=== PATIENT | male | born 1970 | race Caucasian/White ===

== ENCOUNTER 2017-03-28 14:17 | Inpatient (IN) | payer OTHER ==
[2017-03-28 15:16] VITALS: BMI 26.6
--- NOTE | 2017-03-28 16:15 | HP ---
Admission ROS [facility] Chief Complaint: "I need to get better." Patient is here for Rehab for Percocet (Prescribed) and Xanax (Prescribed). Allergies/Adverse Reactions: Allergies Allergy/AdvReac Type Severity Reaction Status Date / Time pencillin Allergy Intermediate Hives Uncoded 03/28/17 15:36 History of Present Illness: Patient is a 46 YO male here for Rehab for Percocet (Prescribed, started 2010) and Xanax (Prescribe, started 2013). Patient just completed a Detox at [facility] (7 days) earlier today. This is patient's first Rehab admission at [facility]. Exam Limitations: No Limitations - Ebola screening Have you traveled outside of the country in the last 21 days: No Have you had contact with anyone from an Ebola affected area: No Have you been sick,other than usual withdrawal symptoms: No Do you have a fever: No - Review of Systems Constitutional: Chills, Diaphoresis, Loss of Appetite, Malaise, Night Sweats, Changes in sleep, Unintentional Wgt. Loss (Lost approx. 10 lbs. over last 2 months.) EENT: reports: Dental Problems (Discomfort on right side of face (had upper left molar pulled yesterday)), Other (Upper and Lower Dentures.) Respiratory: reports: No Symptoms reported Cardiac: reports: Palpitations (When feeling anxious.) GI: reports: Diarrhea : reports: No Symptoms Reported Musculoskeletal: reports: Back Pain, Joint Pain, Muscle Pain, Joint Stiffness Integumentary: reports: No Symptoms Reported Neuro: reports: Headache Endocrine: reports: No Symptoms Reported Hematology: reports: Blood Clots (Treated for DVT in Left Leg (Treated, Resolved @ 2002).) Psychiatric: reports: Judgement Intact, Mood/Affect Appropiate, Orientated x3, Anxious, Depressed (Took Valium in Past, None currently.) Other Systems: Reviewed and Negative Patient History - Patient Medical History Hx Anemia: No Hx Asthma: Yes (Uses Ventolin Inhaler PRN.) Hx Chronic Obstructive Pulmonary Disease (COPD): No Hx Cancer: No Hx Cardiac Disorders: No Hx Congestive Heart Failure: No Hx Hypertension: No (During Detox only.) Hx Hypercholesterolemia: No Hx Pacemaker: No HX Cerebrovascular Accident: No Hx Seizures: No Hx Dementia: No Hx Diabetes: No Hx Gastrointestinal Disorders: No Hx Liver Disease: No Hx Genitourinary Disorders: No Hx Sexually Transmitted Disorders: No Hx Renal Disease (ESRD): No Hx Thyroid Disease: No Hx Human Immunodeficiency Virus (HIV): No (Last Tested approx. 3 years ago: NEGATIVE.) Hx Hepatitis C: No (Never Tested.) Hx Depression: Yes (And anxiety; Meds. in past; None Current.) Hx Suicide Attempt: No (PATIENT DENIES CURRENT SI / HI.) Hx Bipolar Disorder: No Hx Schizophrenia: No Other Medical History: DVT, Left leg, Treated, Resolved @ 2002. - Patient Surgical History Past Surgical History: Yes Hx Neurologic Surgery: No Hx Cataract Extraction: No Hx Cardiac Surgery: No Hx Lung Surgery: No Hx Breast Surgery: No Hx Breast Biopsy: No Hx Abdominal Surgery: No Hx Appendectomy: No Hx Cholecystectomy: No Hx Genitourinary Surgery: No Hx Orthopedic Surgery: No Other Surgical History: Surgery in Left inguinal area @ 2002 to treat DVT. Anesthesia Reaction: No - PPD History Previous Implant?: Yes Documented Results: Negative w/o proof Implanted On Prior [facility] Admission?: No PPD to be Administered?: Yes - Reproductive History Patient is a Female of Child Bearing Age (11 -55 yrs old): No (PATIENT IS MALE.) - Smoking Cessation Smoking history: Current every day smoker Have you smoked in the past 12 months: Yes Aproximately how many cigarettes per day: 30 Cigars Per Day: 0 Hx Chewing Tobacco Use: No Initiated information on smoking cessation: Yes 'Breaking Loose' booklet given: 03/28/17 (GIVEN ON UNIT.) - Substance & Tx. History Hx Alcohol Use: No Hx Substance Use: No Substance Use Type: Opiates, Prescribed (Percocet, Xanax.), Tranquilizers Hx Substance Use Treatment: Yes (Detox at [facility] ([facility] just completed earlier today.) - Substances Abused Alprazolam (Xanax) Route: Oral Frequency: Daily Amount used: 6 - 7 MG Daily Age of first use: 42 Date of Last Use: 03/21/17 Percocet Route: Oral Frequency: Daily Age of first use: 41 Date of Last Use: 03/21/17 Family Disease History - Family Disease History Family Disease History: Diabetes: Father (Bladder Ca.), Heart Disease: Sister ( HTN; Hysterectomy.), CA: Father, Mother (Ovarian, .) Admission Physical Exam [facility] - Vital Signs Vital Signs: Vital Signs - 24 hr 03/28/17 15:15 Temperature 97.7 F Pulse Rate 100 H Respiratory 18 Rate Blood Pressure 115/78 - Physical General Appearance: Yes: No Apparent Distress, Nourished, Appropriately Dressed , Anxious, Other (Patient ambulating with assistance of a cane.) HEENTM: Yes: Hearing grossly Normal, Normocephalic, Normal Voice, XIOMARA, Pharynx Normal Respiratory: Yes: Chest Non-Tender, Lungs Clear, No Respiratory Distress, No Accessory Muscle Use Neck: Yes: No masses,lesions,Nodules, Supple, Trachea in good position Breast: Yes: Breast Exam Deferred Cardiology: Yes: Regular Rhythm, Regular Rate, S1, S2 Abdominal: Yes: Normal Bowel Sounds, Non Tender, Flat, Soft Genitourinary: Yes: Within Normal Limits Back: Yes: Decreased Range of Motion Musculoskeletal: Yes: Gait Steady, Back pain, Joint Stiffness Extremities: Yes: Normal Capillary Refill Neurological: Yes: Fully Oriented, Alert, Normal Mood/Affect, Normal Response Integumentary: Yes: Normal Color, Dry, Warm Lymphatic: Yes: Within Normal Limits - Diagnostic (1) Opioid dependence, uncomplicated Current Visit: Yes Status: Chronic (2) Sedative, hypnotic or anxiolytic dependence, uncomplicated Current Visit: Yes Status: Chronic (3) Nicotine dependence Current Visit: Yes Status: Chronic Qualifiers: Nicotine product type: cigarettes Substance use status: uncomplicated Qualified Code(s): F17.210 - Nicotine dependence, cigarettes, uncomplicated (4) Use of cane as ambulatory aid Current Visit: Yes Status: Chronic (5) History of DVT (deep vein thrombosis) Current Visit: Yes Status: Resolved (6) Depression with anxiety Current Visit: Yes Status: Chronic (7) Insomnia Current Visit: Yes Status: Chronic Qualifiers: Insomnia type: unspecified Qualified Code(s): G47.00 - Insomnia, unspecified (8) Asthma Current Visit: Yes Status: Chronic Qualifiers: Asthma severity: mild Asthma persistence: intermittent Asthma complication type: uncomplicated Qualified Code(s): J45.20 - Mild intermittent asthma, uncomplicated Cleared for Admission [facility] - Detox or Rehab Claeared for Rehab Admission: Yes [facility] Breath Alcohol Content Breath Alcohol Content: 0 Urine Drug Screen - Results Drug Screen Negative: Yes Inpatient Rehab Admission - Initial Determination Are CD services needed?: Yes Free of communicable disease: Yes Not in need of hospitalization: Yes - Rehab Admission Criteria Previous failed treatment: Yes Comorbidities: Yes Patient is meeting Inpatient Rehab admission criteria:: Yes
[2017-03-28] MEDS ORDERED: MAGNESIUM HYDROX 2400MG/30ML ORAL SUSPENSION 30 ML CUP PO PRN (16:53)
[2017-03-28] MEDS ORDERED: MAG HYDROX/AL HYDROX/SIMETH 30 ML UNIT-DOSE CUP PO PRN (16:53)
[2017-03-28] MEDS ORDERED: LOPERAMIDE HCL 2 MG CAPSULE PO PRN (16:53)
[2017-03-28] MEDS ORDERED: guaiFENesin/D-METHORPHAN HB 10 ML UNIT-DOSE CUPS PO PRN (16:53)
[2017-03-28] MEDS ORDERED: MAGNESIUM CITRATE 300 ML BOTTLE PO PRN (16:53)
[2017-03-28] MEDS ORDERED: LIDOCAINE VISCOUS 2% ORAL/TOP 20 ML UNIT-DOSE CUP MM PRN (16:57)
[2017-03-28] MEDS ORDERED: TUBERCULIN PPD 5 TU/0.1ML VIAL ID ONE (19:34)
[2017-03-28] MEDS: NICOTINE 21 MG/24 HOURS TOPICAL PATCH TD SCH (19:35)
[2017-03-28] MEDS: METHOCARBAMOL 500 MG TABLET PO PRN (21:33)
[2017-03-28] MEDS: THIAMINE HCL 100 MG TABLET (FP) PO SCH (21:33)
[2017-03-28] MEDS: hydrOXYzine PAMOATE 50 MG CAPSULE (FP) PO PRN (21:33)
[2017-03-28] MEDS: CLINDAMYCIN HCL 150 MG CAPSULE (FP) PO SCH (21:33)
[2017-03-28] MEDS: IBUPROFEN 400 MG TABLET (FP) PO PRN (21:34)
[2017-03-28 23:27] LABS: URINE APPEARANCE CLEAR; URINE BILIRUBIN NEGATIVE (NEGATIVE); URINE BLOOD NEGATIVE (NEGATIVE); URINE COLOR LTYELLOW; URINE GLUCOSE (UA) NEGATIVE (NEGATIVE); URINE KETONE NEGATIVE (NEGATIVE); URINE NITRITE NEGATIVE (NEGATIVE); URINE PROTEIN NEGATIVE (NEGATIVE); URINE UROBILINOGEN NEGATIVE mg/dL (0.2-1.0)
[2017-03-29] MEDS: CLINDAMYCIN HCL 150 MG CAPSULE (FP) PO SCH ×3 (06:21→22:43)
[2017-03-29] MEDS: IBUPROFEN 400 MG TABLET (FP) PO PRN (08:46)
[2017-03-29] MEDS: PRENATAL VITAMINS W/ FOLIC ACID TABLET (FP) PO SCH (10:14)
[2017-03-29] MEDS: hydrOXYzine PAMOATE 50 MG CAPSULE (FP) PO PRN ×2 (10:14→21:41)
[2017-03-29] MEDS: METHOCARBAMOL 500 MG TABLET PO PRN (10:14)
[2017-03-29] MEDS: NICOTINE 21 MG/24 HOURS TOPICAL PATCH TD SCH (10:15)
--- NOTE | 2017-03-29 10:24 | EKG ---
Test Reason : Blood Pressure : / mmHG Vent. Rate : 095 BPM Atrial Rate : 095 BPM P-R Int : 176 ms QRS Dur : 080 ms QT Int : 360 ms P-R-T Axes : 053 031 052 degrees QTc Int : 452 ms NORMAL SINUS RHYTHM NORMAL ECG NO PREVIOUS ECGS AVAILABLE Confirmed by ELVIRA MONROE, EDAN ([id number]) on 03/29/2017 10:23:51 AM Referred By: Confirmed By:EDNA FELIX MD
[2017-03-29 11:04] LABS: MCH 31.2 pg (25.7-33.7); MCHC 33.1 g/dl (32.0-35.9); MEAN CELL VOLUME 94.3 fl (80-96); MEAN PLT VOLUME 9.6 fl (7.5-11.1); PLATELET COUNT 234 K/MM3 (134-434); RDW 14.7 % (11.9-15.9); WHITE BLOOD COUNT 10.7 K/mm3 (4.0-10.0)
[2017-03-29 11:06] LABS: URINE LEUK ESTERASE Negative (NEGATIVE)
[2017-03-29] MEDS ORDERED: busPIRone HCL 5 MG TABLET PO ONE (11:24)
[2017-03-29] MEDS ORDERED: GABAPENTIN 100 MG CAPSULE (FP) PO ONE (11:25)
[2017-03-29 11:34] LABS: ALBUMIN 3.9 g/dl (3.4-5.0); ALK PHOS 81 U/L (45-117); ANION GAP 8 (8-16); BILIRUBIN,TOTAL 0.8 mg/dL (0.2-1.0); CALCIUM 9.4 mg/dL (8.5-10.1); CO2 26 mmol/L (21-32); CREATININE 0.8 mg/dL (0.7-1.3); GLUCOSE,RANDOM 101 mg/dL (74-106); SGOT/AST 18 U/L (15-37); SGPT/ALT 25 U/L (12-78); TOT PROT 7.5 g/dl (6.4-8.2)
--- NOTE | 2017-03-29 11:38 | HP ---
Psychiatrist Admission - Data Date of interview: 03/29/17 Admission source: [facility] Identifying data: This is the first 5n inpatient rehabilitation admission for this 46 year old male father of two(24 and 22), he is unemployed and on SSI, residing with his family in [place]. Medical History: Asthma, left leg DVT s/p left femoral pop-liteal surgery in 2002, smokes cigarettes 1 PPD. Psychiatric History: Patient reports suffers from depression and anxiety, states it started after the of his mother from ovarian cancer. He saw the psychiatrist in the clinic and tried Prozac, Zoloft without improvement and "only Xanax was effective", states that his anxiety was so severe that he was taking more pills than was prescribed by a doctor. Physical/Sexual Abuse/Trauma History: Denies history of sexual, physiccal and sexual abuse. Vital Signs: Vital Signs - 24 hr 03/28/17 03/28/17 03/29/17 15:15 18:30 00:32 Temperature 97.7 F 98.9 F Pulse Rate 100 H 108 H Respiratory 18 18 18 Rate Blood Pressure 115/78 134/76 03/29/17 03/29/17 03:30 07:01 Temperature 97.2 F L Pulse Rate 82 Respiratory 18 18 Rate Blood Pressure 119/79 Allergies/Adverse Reactions: Allergies Allergy/AdvReac Type Severity Reaction Status Date / Time Penicillins Allergy Intermediate Hives Verified 03/28/17 18:00 pencillin Allergy Intermediate Hives Uncoded 03/28/17 15:36 Date of last physical exam: 03/28/17 Concur with the findings of this exam: Yes - Substance Abuse/Tx History Hx Alcohol Use: No Hx Substance Use: Yes Substance Use Type: Opiates (percocet 10 mg 8 pills aday), Tranquilizers (xanax up to 7 mg daily.) Hx Substance Use Treatment: Yes (detox only, this his first rehab.tx.) Mental Status Exam - Mental Status Exam Alert and Oriented to: Time, Place, Person Cognitive Function: Good Patient Appearance: Well Groomed Mood: Depressed, Sad, Anxious Affect: Appropriate, Mood Congruent Patient Behavior: Crying, Appropriate, Cooperative Speech Pattern: Clear, Appropriate Voice Loudness: Normal Thought Process: Intact, Goal Oriented Thought Disorder: Not Present Hallucinations: Denies Suicidal Ideation: Denies Homicidal Ideation: Denies Insight/Judgement: Fair Sleep: Poorly, Difficulty falling asleep Appetite: Fair Muscle strength/Tone: Normal Gait/Station: Other (waalks with a cane) Psychiatric Findings - Problem List ([place] 1, 2,3) (1) Opioid dependence Current Visit: Yes Status: Acute (2) Sedative hypnotic or anxiolytic dependence Current Visit: Yes Status: Acute (3) MDD (major depressive disorder) Current Visit: Yes Status: Acute (4) Anxiety disorder Current Visit: Yes Status: Acute (5) Insomnia Current Visit: Yes Status: Chronic Qualifiers: Insomnia type: unspecified Qualified Code(s): G47.00 - Insomnia, unspecified (6) Nicotine dependence Current Visit: Yes Status: Chronic Qualifiers: Nicotine product type: cigarettes Substance use status: uncomplicated Qualified Code(s): F17.210 - Nicotine dependence, cigarettes, uncomplicated (7) Use of cane as ambulatory aid Current Visit: Yes Status: Chronic - Initial Treatment Plan Initial Treatment Plan: Discussed indications and properties of gabapentin, buspar and belsomra with the patient, meds were recommended, he agreed to start , will add medications and adjust dosage as needed, monitor progress.
--- NOTE | 2017-03-29 12:40 | PN ---
S Progress Note (SOAP) Subjective: C/O OPIOID WITHDRAWAWL SX AFTER DETOX WOULD LIKE TO START [place] [facility] [place] Objective: 03/29/17 12:39 Vital Signs - 8 hr 03/29/17 07:01 Temperature 97.2 F L Pulse Rate 82 Respiratory 18 Rate Blood Pressure 119/79 Laboratory Tests 03/28/17 03/29/17 03/29/17 22:31 06:00 06:00 WBC 10.7 H RBC 4.47 Hgb 13.9 Hct 42.1 MCV 94.3 MCH 31.2 MCHC 33.1 RDW 14.7 Plt Count 234 MPV 9.6 Sodium 139 Potassium 4.8 Chloride 105 Carbon Dioxide 26 Anion Gap 8 BUN 10 Creatinine 0.8 Creat Clearance w eGFR > 60 Random Glucose 101 Calcium 9.4 Total Bilirubin 0.8 AST 18 ALT 25 Alkaline Phosphatase 81 Total Protein 7.5 Albumin 3.9 Urine Color Ltyellow Urine Appearance Clear Urine pH 5.0 Ur Specific [place] 1.005 Urine Protein Negative Urine Glucose (UA) Negative Urine Ketones Negative Urine Blood Negative Urine Nitrite Negative Urine Bilirubin Negative Urine Urobilinogen Negative Assessment: 03/29/17 12:39 PORTRACTED OPIOID WITHDRAWWL SX, SYMPTOMATIC RELIEF ORDERD, TO SPEAK WITH APARTMENT MAINTENANCE WORKER ABOUT STATING SUBOXONE IF PROGRAM [place] [facility] [place] BE IDENTIFIED CAN START WHILE IN [facility] WITH 4MG DAILY AND TITIRATE DOSE UP TO EFFECT.
[2017-03-29] MEDS: NAPROXEN 500 MG TABLET (FP) PO SCH ×2 (13:55→21:38)
[2017-03-29] MEDS: cloNIDine HCL 0.1 MG TABLET PO SCH ×2 (13:55→21:38)
[2017-03-29] MEDS: PANTOPRAZOLE 40 MG TABLET (FP) PO SCH (13:55)
[2017-03-29] MEDS: GABAPENTIN 100 MG CAPSULE (FP) PO SCH ×2 (13:55→21:38)
[2017-03-29] MEDS: busPIRone HCL 5 MG TABLET PO SCH ×2 (13:56→21:38)
[2017-03-29] MEDS ORDERED: CYCLOBENZAPRINE HCL 5 MG TABLET PO SCH (14:00)
[2017-03-29] MEDS: ALBUTEROL SO4 18 GM HFA INHALER IH PRN (14:00)
[2017-03-29] MEDS: THIAMINE HCL 100 MG TABLET (FP) PO SCH (21:37)
[2017-03-29] MEDS: SUVOREXANT 10 MG TABLET PO PRN (21:41)
[2017-03-30] MEDS: busPIRone HCL 5 MG TABLET PO SCH (06:34)
[2017-03-30] MEDS: GABAPENTIN 100 MG CAPSULE (FP) PO SCH ×3 (06:35→21:31)
[2017-03-30] MEDS: CLINDAMYCIN HCL 150 MG CAPSULE (FP) PO SCH ×3 (06:35→21:32)
--- NOTE | 2017-03-30 10:11 | PN ---
Psychiatric Progress Note Vital Signs: Vital Signs Period Temp Pulse Resp BP Sys/Harris Pulse Ox Last 24 Hr 97.3 F 74-75 18-18 115-117/76-93 Date of Session: 03/30/17 Chief Complaint:: "anxious" HPI: Patient is addressing opioid, sedative hypnotic, nicotine dependence comorbid MDD, anxiety disorder and insomnia. ROS: Asthma, left leg DVT Current Medications: Active Medications Generic Name Dose Route Start Last Admin Trade Name Freq PRN Reason Stop Dose Admin Acetaminophen 650 mg 03/28/17 16:53 Tylenol - PO Q4H PRN PAIN Al Hydroxide/Mg Hydroxide 30 ml 03/28/17 16:53 03/29/17 23:59 Mylanta Oral Suspension - PO 30 ml Q6H PRN Administration DYSPEPSIA Albuterol Sulfate 2 puff 03/28/17 17:12 03/29/17 14:00 Ventolin Hfa Inhaler - IH 2 puff Q4H PRN Administration WHEEZING Buspirone HCl 5 mg 03/29/17 14:00 03/30/17 06:34 Buspar - PO 5 mg TID AUSTYN Administration Clindamycin HCl 300 mg 03/28/17 22:00 03/30/17 06:35 Cleocin - PO 04/04/17 21:59 300 mg TID AUSTYN Administration Clonidine 0.1 mg 03/29/17 13:28 03/29/17 21:38 Catapres - PO 0.1 mg BID AUSTYN Administration Eucalyptus/Menthol/Phenol/Sorbitol 1 each 03/28/17 16:53 Cepastat Lozenge - MM Q4H PRN SORE THROAT Gabapentin 100 mg 03/29/17 14:00 03/30/17 06:35 Neurontin - PO 100 mg TID AUSTYN Administration Guaifenesin 10 ml 03/28/17 16:53 Robitussin Dm - PO Q6H PRN COUGH Hydroxyzine Pamoate 50 mg 03/28/17 16:53 03/29/17 21:41 Vistaril - PO 50 mg Q4H PRN Administration AGITATION Lidocaine HCl 20 ml 03/28/17 16:57 03/29/17 10:14 Xylocaine 2% Viscous Oral - MM 20 ml TID PRN Administration ORAL PAIN/MOUTH SORES Loperamide HCl 4 mg 03/28/17 16:53 Imodium - PO Q6H PRN DIARRHEA Magnesium Citrate 300 ml 03/28/17 16:53 Citroma - PO Q48H PRN CONSTIPATION Magnesium Hydroxide 30 ml 03/28/17 16:53 Milk Of Magnesia - PO DAILY PRN CONSTIPATION Methocarbamol 500 mg 03/28/17 16:56 03/29/17 10:14 Robaxin - PO 500 mg TID PRN Administration MUSCLE SPASMS Naproxen 500 mg 03/29/17 13:29 03/29/17 21:38 Naprosyn - PO 500 mg BID AUSTYN Administration Nicotine 21 mg 03/28/17 18:15 03/29/17 10:15 Nicoderm Patch - TD 21 mg DAILY AUSTYN Administration Nicotine Polacrilex 4 mg 03/28/17 16:53 Nicorette Gum - BC Q2H PRN NICOTINE REPLACEMENT RX Pantoprazole Sodium 40 mg 03/29/17 13:29 03/29/17 13:55 Protonix - PO 40 mg DAILY AUSTYN Administration Multivit/Folic Acid/Iron 1 tab 03/29/17 10:00 03/29/17 10:14 Vitamins (Sjr) - PO 1 tab DAILY AUSTYN Administration Pseudoephedrine/Triprolidine 1 combo 03/28/17 16:53 Actifed - PO TID PRN NASAL CONGESTION Thiamine HCl 100 mg 03/28/17 22:00 03/29/17 21:37 Vitamin B1 - PO 100 mg HS AUSTYN Administration Medication(s) Change(s): increase gabapentin 200 mg po tid, buspar 10 mg po tid Current Side Effect: No Lab tests ordered: No Lab tests reviewed: Yes Provider note:: Patient was seen today, he continues to c/o anxiety, depression and poor sleep, reviewed medications with the patient will increase gabapentin and buspar, continue to monitor progress. Total face to face time:: 15 Mental Status Exam - Mental Status Exam Alert and Oriented to: Time, Place, Person Cognitive Function: Grossly Intact Patient Appearance: Well Groomed Mood: Depressed, Sad, Anxious Affect: Appropriate, Mood Congruent Patient Behavior: Appropriate, Cooperative Speech Pattern: Appropriate Voice Loudness: Normal Thought Process: Intact, Goal Oriented Thought Disorder: Not Present Hallucinations: Denies Suicidal Ideation: Denies Homicidal Ideation: Denies Insight/Judgement: Fair Sleep: Fair Appetite: Fair Muscle strength/Tone: Normal Gait/Station: Other (ambulates with walker) Psychiatric Treatment Plan - Problem List (1) Opioid dependence Current Visit: Yes (2) Sedative hypnotic or anxiolytic dependence Current Visit: Yes (3) MDD (major depressive disorder) Current Visit: Yes (4) Anxiety disorder Current Visit: Yes (5) Insomnia Current Visit: Yes Qualifiers: Insomnia type: unspecified Qualified Code(s): G47.00 - Insomnia, unspecified (6) Nicotine dependence Current Visit: Yes Qualifiers: Nicotine product type: cigarettes Substance use status: uncomplicated Qualified Code(s): F17.210 - Nicotine dependence, cigarettes, uncomplicated (7) Use of cane as ambulatory aid Current Visit: Yes
[2017-03-30] MEDS: PRENATAL VITAMINS W/ FOLIC ACID TABLET (FP) PO SCH (10:23)
[2017-03-30] MEDS: NICOTINE 21 MG/24 HOURS TOPICAL PATCH TD SCH (10:23)
[2017-03-30] MEDS: NAPROXEN 500 MG TABLET (FP) PO SCH ×2 (10:23→21:32)
[2017-03-30] MEDS: PANTOPRAZOLE 40 MG TABLET (FP) PO SCH (10:23)
[2017-03-30] MEDS: cloNIDine HCL 0.1 MG TABLET PO SCH ×2 (10:23→21:32)
[2017-03-30] MEDS: hydrOXYzine PAMOATE 50 MG CAPSULE (FP) PO PRN ×3 (10:25→21:33)
[2017-03-30] MEDS: METHOCARBAMOL 500 MG TABLET PO PRN (10:59)
[2017-03-30] MEDS: busPIRone HCL 10 MG TABLET (FP) PO SCH ×2 (14:04→21:32)
[2017-03-30] MEDS: THIAMINE HCL 100 MG TABLET (FP) PO SCH (21:31)
[2017-03-30] MEDS: SUVOREXANT 10 MG TABLET PO PRN (21:31)
[2017-03-31] MEDS: CLINDAMYCIN HCL 150 MG CAPSULE (FP) PO SCH ×3 (06:00→21:25)
[2017-03-31] MEDS: GABAPENTIN 100 MG CAPSULE (FP) PO SCH (06:00)
[2017-03-31] MEDS: busPIRone HCL 10 MG TABLET (FP) PO SCH (06:01)
[2017-03-31] MEDS: METHOCARBAMOL 500 MG TABLET PO PRN ×3 (06:02→22:18)
[2017-03-31] MEDS: hydrOXYzine PAMOATE 50 MG CAPSULE (FP) PO PRN ×4 (06:02→21:25)
[2017-03-31] MEDS: PANTOPRAZOLE 40 MG TABLET (FP) PO SCH (10:01)
[2017-03-31] MEDS: NICOTINE 21 MG/24 HOURS TOPICAL PATCH TD SCH (10:01)
[2017-03-31] MEDS: cloNIDine HCL 0.1 MG TABLET PO SCH ×2 (10:01→21:24)
[2017-03-31] MEDS: PRENATAL VITAMINS W/ FOLIC ACID TABLET (FP) PO SCH (10:01)
[2017-03-31] MEDS: NAPROXEN 500 MG TABLET (FP) PO SCH ×2 (10:01→21:24)
--- NOTE | 2017-03-31 11:22 | PN ---
Psychiatric Progress Note Vital Signs: Vital Signs Period Temp Pulse Resp BP Sys/Harris Pulse Ox Last 24 Hr 97.2 F 79-82 18-18 124-127/79-83 Date of Session: 03/31/17 Chief Complaint:: progress update HPI: Patient is addressing opioid, sedative hypnotic, nicotine dependence comorbid MDD, anxiety disorder and insomnia. ROS: Asthma, left leg DVT Current Medications: Active Medications Generic Name Dose Route Start Last Admin Trade Name Freq PRN Reason Stop Dose Admin Acetaminophen 650 mg 03/28/17 16:53 Tylenol - PO Q4H PRN PAIN Al Hydroxide/Mg Hydroxide 30 ml 03/28/17 16:53 03/29/17 23:59 Mylanta Oral Suspension - PO 30 ml Q6H PRN Administration DYSPEPSIA Albuterol Sulfate 2 puff 03/28/17 17:12 03/29/17 14:00 Ventolin Hfa Inhaler - IH 2 puff Q4H PRN Administration WHEEZING Clindamycin HCl 300 mg 03/28/17 22:00 03/31/17 06:00 Cleocin - PO 04/04/17 21:59 300 mg TID AUSTYN Administration Clonidine 0.1 mg 03/29/17 13:28 03/31/17 10:01 Catapres - PO 0.1 mg BID AUSTYN Administration Eucalyptus/Menthol/Phenol/Sorbitol 1 each 03/28/17 16:53 Cepastat Lozenge - MM Q4H PRN SORE THROAT Guaifenesin 10 ml 03/28/17 16:53 Robitussin Dm - PO Q6H PRN COUGH Hydroxyzine Pamoate 50 mg 03/28/17 16:53 03/31/17 10:02 Vistaril - PO 50 mg Q4H PRN Administration AGITATION Lidocaine HCl 20 ml 03/28/17 16:57 03/29/17 10:14 Xylocaine 2% Viscous Oral - MM 20 ml TID PRN Administration ORAL PAIN/MOUTH SORES Loperamide HCl 4 mg 03/28/17 16:53 Imodium - PO Q6H PRN DIARRHEA Magnesium Citrate 300 ml 03/28/17 16:53 Citroma - PO Q48H PRN CONSTIPATION Magnesium Hydroxide 30 ml 03/28/17 16:53 Milk Of Magnesia - PO DAILY PRN CONSTIPATION Methocarbamol 500 mg 03/28/17 16:56 03/31/17 06:02 Robaxin - PO 500 mg TID PRN Administration MUSCLE SPASMS Naproxen 500 mg 03/29/17 13:29 03/31/17 10:01 Naprosyn - PO 500 mg BID AUSTYN Administration Nicotine 21 mg 03/28/17 18:15 03/31/17 10:01 Nicoderm Patch - TD 21 mg DAILY AUSTYN Administration Nicotine Polacrilex 4 mg 03/28/17 16:53 Nicorette Gum - BC Q2H PRN NICOTINE REPLACEMENT RX Pantoprazole Sodium 40 mg 03/29/17 13:29 03/31/17 10:01 Protonix - PO 40 mg DAILY AUSTYN Administration Multivit/Folic Acid/Iron 1 tab 03/29/17 10:00 03/31/17 10:01 Vitamins (Sjr) - PO 1 tab DAILY AUSTYN Administration Pseudoephedrine/Triprolidine 1 combo 03/28/17 16:53 Actifed - PO TID PRN NASAL CONGESTION Thiamine HCl 100 mg 03/28/17 22:00 03/30/17 21:31 Vitamin B1 - PO 100 mg HS AUSTYN Administration Medication(s) Change(s): increase Buspar 15 mg po tid and Gabapentin 300 mg po tid. Current Side Effect: No Lab tests ordered: No Lab tests reviewed: Yes Provider note:: Patient c/o anxiety, mood swings, irritablity, medications well tolerated, reviewed medications with the patient , will increase Buspar and Gabapentin, continue to monitor progress. Total face to face time:: 15 Mental Status Exam - Mental Status Exam Alert and Oriented to: Time, Place, Person Cognitive Function: Good Patient Appearance: Well Groomed Mood: Depressed, Sad, Anxious, Irritable Affect: Appropriate, Mood Congruent Patient Behavior: Appropriate, Cooperative Speech Pattern: Clear, Appropriate Voice Loudness: Normal Thought Process: Intact, Goal Oriented Thought Disorder: Not Present Hallucinations: Denies Suicidal Ideation: Denies Homicidal Ideation: Denies Insight/Judgement: Fair Sleep: Fair Appetite: Fair Muscle strength/Tone: Normal Gait/Station: Normal Psychiatric Treatment Plan - Problem List (1) Opioid dependence Current Visit: Yes (2) Sedative hypnotic or anxiolytic dependence Current Visit: Yes (3) MDD (major depressive disorder) Current Visit: Yes (4) Anxiety disorder Current Visit: Yes (5) Insomnia Current Visit: Yes Qualifiers: Insomnia type: unspecified Qualified Code(s): G47.00 - Insomnia, unspecified (6) Nicotine dependence Current Visit: Yes Qualifiers: Nicotine product type: cigarettes Substance use status: uncomplicated Qualified Code(s): F17.210 - Nicotine dependence, cigarettes, uncomplicated (7) Use of cane as ambulatory aid Current Visit: Yes
[2017-03-31] MEDS: GABAPENTIN 300 MG CAPSULE (FP) PO SCH ×2 (14:09→21:24)
[2017-03-31] MEDS: SUVOREXANT 10 MG TABLET PO PRN (21:25)
[2017-03-31] MEDS: THIAMINE HCL 100 MG TABLET (FP) PO SCH (21:25)
[2017-04-01] MEDS: GABAPENTIN 300 MG CAPSULE (FP) PO SCH ×3 (06:40→21:35)
[2017-04-01] MEDS: CLINDAMYCIN HCL 150 MG CAPSULE (FP) PO SCH ×3 (06:40→21:35)
[2017-04-01] MEDS: hydrOXYzine PAMOATE 50 MG CAPSULE (FP) PO PRN ×2 (06:41→12:23)
[2017-04-01] MEDS: PANTOPRAZOLE 40 MG TABLET (FP) PO SCH (10:15)
[2017-04-01] MEDS: NICOTINE 21 MG/24 HOURS TOPICAL PATCH TD SCH (10:15)
[2017-04-01] MEDS: cloNIDine HCL 0.1 MG TABLET PO SCH ×2 (10:15→21:34)
[2017-04-01] MEDS: PRENATAL VITAMINS W/ FOLIC ACID TABLET (FP) PO SCH (10:15)
[2017-04-01] MEDS: NAPROXEN 500 MG TABLET (FP) PO SCH ×2 (10:15→21:34)
[2017-04-01] MEDS: ACETAMINOPHEN 325 MG TABLET (FP) PO PRN (16:43)
[2017-04-01] MEDS: ALBUTEROL SO4 18 GM HFA INHALER IH PRN (16:46)
[2017-04-01] MEDS: THIAMINE HCL 100 MG TABLET (FP) PO SCH (21:35)
[2017-04-01] MEDS: METHOCARBAMOL 500 MG TABLET PO PRN (21:37)
[2017-04-01] MEDS: SUVOREXANT 10 MG TABLET PO PRN (21:38)
[2017-04-02] MEDS: CLINDAMYCIN HCL 150 MG CAPSULE (FP) PO SCH ×3 (06:42→21:26)
[2017-04-02] MEDS: hydrOXYzine PAMOATE 50 MG CAPSULE (FP) PO PRN ×4 (06:43→21:25)
[2017-04-02] MEDS: GABAPENTIN 300 MG CAPSULE (FP) PO SCH ×3 (06:43→21:26)
[2017-04-02] MEDS: cloNIDine HCL 0.1 MG TABLET PO SCH ×2 (10:21→21:25)
[2017-04-02] MEDS: PRENATAL VITAMINS W/ FOLIC ACID TABLET (FP) PO SCH (10:21)
[2017-04-02] MEDS: NAPROXEN 500 MG TABLET (FP) PO SCH ×2 (10:21→21:26)
[2017-04-02] MEDS: PANTOPRAZOLE 40 MG TABLET (FP) PO SCH (10:21)
[2017-04-02] MEDS: NICOTINE 21 MG/24 HOURS TOPICAL PATCH TD SCH (10:22)
[2017-04-02] MEDS: ACETAMINOPHEN 325 MG TABLET (FP) PO PRN (20:04)
[2017-04-02] MEDS: METHOCARBAMOL 500 MG TABLET PO PRN (21:25)
[2017-04-02] MEDS: THIAMINE HCL 100 MG TABLET (FP) PO SCH (21:26)
[2017-04-03] MEDS: hydrOXYzine PAMOATE 50 MG CAPSULE (FP) PO PRN ×4 (02:42→21:49)
[2017-04-03] MEDS: CLINDAMYCIN HCL 150 MG CAPSULE (FP) PO SCH ×3 (06:13→21:47)
[2017-04-03] MEDS: GABAPENTIN 300 MG CAPSULE (FP) PO SCH ×3 (06:13→21:46)
[2017-04-03] MEDS: cloNIDine HCL 0.1 MG TABLET PO SCH ×3 (06:37→21:47)
[2017-04-03] MEDS: PANTOPRAZOLE 40 MG TABLET (FP) PO SCH (10:18)
[2017-04-03] MEDS: NAPROXEN 500 MG TABLET (FP) PO SCH ×2 (10:18→21:47)
[2017-04-03] MEDS: PRENATAL VITAMINS W/ FOLIC ACID TABLET (FP) PO SCH (10:18)
[2017-04-03] MEDS: NICOTINE 21 MG/24 HOURS TOPICAL PATCH TD SCH (10:18)
[2017-04-03] MEDS: METHOCARBAMOL 500 MG TABLET PO PRN (10:21)
--- NOTE | 2017-04-03 13:33 | PN ---
Psychiatric Progress Note Vital Signs: Vital Signs Period Temp Pulse Resp BP Sys/Harris Pulse Ox Last 24 Hr 98.1 F 69-83 18-20 115-155/77-98 Date of Session: 04/03/17 Chief Complaint:: "insomnia" HPI: Patient is addressing opioid, sedative hypnotic, nicotine dependence comorbid MDD, anxiety disorder and insomnia. ROS: Asthma, left leg DVT Current Medications: Active Medications Generic Name Dose Route Start Last Admin Trade Name Freq PRN Reason Stop Dose Admin Acetaminophen 650 mg 03/28/17 16:53 04/02/17 20:04 Tylenol - PO 650 mg Q4H PRN Administration PAIN Al Hydroxide/Mg Hydroxide 30 ml 03/28/17 16:53 03/29/17 23:59 Mylanta Oral Suspension - PO 30 ml Q6H PRN Administration DYSPEPSIA Albuterol Sulfate 2 puff 03/28/17 17:12 04/01/17 16:46 Ventolin Hfa Inhaler - IH 2 puff Q4H PRN Administration WHEEZING Buspirone HCl 15 mg 03/31/17 14:00 04/03/17 06:13 Buspar - PO 15 mg TID AUSTYN Administration Clindamycin HCl 300 mg 03/28/17 22:00 04/03/17 06:13 Cleocin - PO 04/04/17 21:59 300 mg TID AUSTYN Administration Clonidine 0.1 mg 03/29/17 13:28 04/03/17 10:20 Catapres - PO Not Given BID AUSTYN Eucalyptus/Menthol/Phenol/Sorbitol 1 each 03/28/17 16:53 Cepastat Lozenge - MM Q4H PRN SORE THROAT Gabapentin 300 mg 03/31/17 14:00 04/03/17 06:13 Neurontin - PO 300 mg TID AUSTYN Administration Guaifenesin 10 ml 03/28/17 16:53 Robitussin Dm - PO Q6H PRN COUGH Hydroxyzine Pamoate 50 mg 03/28/17 16:53 04/03/17 06:37 Vistaril - PO 50 mg Q4H PRN Administration AGITATION Lidocaine HCl 20 ml 03/28/17 16:57 03/29/17 10:14 Xylocaine 2% Viscous Oral - MM 20 ml TID PRN Administration ORAL PAIN/MOUTH SORES Loperamide HCl 4 mg 03/28/17 16:53 Imodium - PO Q6H PRN DIARRHEA Magnesium Citrate 300 ml 03/28/17 16:53 Citroma - PO Q48H PRN CONSTIPATION Magnesium Hydroxide 30 ml 03/28/17 16:53 Milk Of Magnesia - PO DAILY PRN CONSTIPATION Methocarbamol 500 mg 03/28/17 16:56 04/03/17 10:21 Robaxin - PO 500 mg TID PRN Administration MUSCLE SPASMS Naproxen 500 mg 03/29/17 13:29 04/03/17 10:18 Naprosyn - PO 500 mg BID AUSTYN Administration Nicotine 21 mg 03/28/17 18:15 04/03/17 10:18 Nicoderm Patch - TD 21 mg DAILY AUSTYN Administration Nicotine Polacrilex 4 mg 03/28/17 16:53 Nicorette Gum - BC Q2H PRN NICOTINE REPLACEMENT RX Pantoprazole Sodium 40 mg 03/29/17 13:29 04/03/17 10:18 Protonix - PO 40 mg DAILY AUSTYN Administration Multivit/Folic Acid/Iron 1 tab 03/29/17 10:00 04/03/17 10:18 Vitamins (Sjr) - PO 1 tab DAILY AUSTYN Administration Pseudoephedrine/Triprolidine 1 combo 03/28/17 16:53 Actifed - PO TID PRN NASAL CONGESTION Thiamine HCl 100 mg 03/28/17 22:00 04/02/17 21:26 Vitamin B1 - PO 100 mg HS AUSTYN Administration Current Side Effect: No Lab tests ordered: No Lab tests reviewed: Yes Provider note:: Patient reports he is unable to sleep, having racing thoughts at nights, irritablity and increased anxiety, reports was on Seroquel 200 mg po hs with good respomse. Side-effects and benefits discussed with the patient , will start with 100 mg po hs, continue to monitor progress. Total face to face time:: 13 Mental Status Exam - Mental Status Exam Alert and Oriented to: Time, Place, Person Cognitive Function: Grossly Intact Patient Appearance: Well Groomed Mood: Anxious, Irritable Affect: Appropriate, Mood Congruent Patient Behavior: Appropriate, Cooperative Speech Pattern: Appropriate Voice Loudness: Normal Thought Process: Intact, Goal Oriented Hallucinations: Denies Suicidal Ideation: Denies Homicidal Ideation: Denies Insight/Judgement: Fair Sleep: Poorly, Difficulty falling asleep Appetite: Fair Muscle strength/Tone: Normal Gait/Station: Other (ambulates with cane.) Psychiatric Treatment Plan - Problem List (1) Opioid dependence Current Visit: Yes (2) Sedative hypnotic or anxiolytic dependence Current Visit: Yes (3) MDD (major depressive disorder) Current Visit: Yes (4) Anxiety disorder Current Visit: Yes (5) Insomnia Current Visit: Yes Qualifiers: Insomnia type: unspecified Qualified Code(s): G47.00 - Insomnia, unspecified (6) Nicotine dependence Current Visit: Yes Qualifiers: Nicotine product type: cigarettes Substance use status: uncomplicated Qualified Code(s): F17.210 - Nicotine dependence, cigarettes, uncomplicated (7) Use of cane as ambulatory aid Current Visit: Yes
[2017-04-03] MEDS: ACETAMINOPHEN 325 MG TABLET (FP) PO PRN (16:45)
[2017-04-03] MEDS: THIAMINE HCL 100 MG TABLET (FP) PO SCH (21:46)
--- NOTE | 2017-04-03 22:41 | PN ---
[facility] Progress Note Note: Psychiatry Attending's on-call note : Called to enter order for seroquel 100 mg/hs. Chart reviewed. Dr Turcios's note of 04/03/17 : appreciated. Consistent with strategy to augment with seroquel. To start with 100 mg/hs and titrate to 200 mg. As tolerated/clinically indicated. Patient was informed of careplan. As per treating psychiatrist. Intervention : Seroquel 100 mg po hs. Ordered according to plan. Continuity of care.
[2017-04-03] MEDS: QUEtiapine FUMARATE 100 MG TABLET (FP) PO SCH (23:17)
[2017-04-04] MEDS: CLINDAMYCIN HCL 150 MG CAPSULE (FP) PO SCH ×2 (06:24→14:17)
[2017-04-04] MEDS: GABAPENTIN 300 MG CAPSULE (FP) PO SCH ×3 (06:24→21:47)
[2017-04-04] MEDS: hydrOXYzine PAMOATE 50 MG CAPSULE (FP) PO PRN ×3 (06:25→21:49)
[2017-04-04] MEDS: cloNIDine HCL 0.1 MG TABLET PO SCH ×2 (10:19→21:47)
[2017-04-04] MEDS: METHOCARBAMOL 500 MG TABLET PO PRN ×2 (10:19→21:49)
[2017-04-04] MEDS: PANTOPRAZOLE 40 MG TABLET (FP) PO SCH (10:19)
[2017-04-04] MEDS: NICOTINE 21 MG/24 HOURS TOPICAL PATCH TD SCH (10:19)
[2017-04-04] MEDS: PRENATAL VITAMINS W/ FOLIC ACID TABLET (FP) PO SCH (10:19)
[2017-04-04] MEDS: NAPROXEN 500 MG TABLET (FP) PO SCH ×2 (10:19→21:47)
[2017-04-04] MEDS: THIAMINE HCL 100 MG TABLET (FP) PO SCH (21:47)
[2017-04-04] MEDS: QUEtiapine FUMARATE 100 MG TABLET (FP) PO SCH (21:48)
[2017-04-05] MEDS: GABAPENTIN 300 MG CAPSULE (FP) PO SCH ×3 (06:14→21:30)
[2017-04-05] MEDS: hydrOXYzine PAMOATE 50 MG CAPSULE (FP) PO PRN ×4 (06:15→21:32)
[2017-04-05] MEDS: cloNIDine HCL 0.1 MG TABLET PO SCH ×2 (10:20→21:30)
[2017-04-05] MEDS: PANTOPRAZOLE 40 MG TABLET (FP) PO SCH (10:20)
[2017-04-05] MEDS: NAPROXEN 500 MG TABLET (FP) PO SCH ×2 (10:20→21:30)
[2017-04-05] MEDS: PRENATAL VITAMINS W/ FOLIC ACID TABLET (FP) PO SCH (10:20)
[2017-04-05] MEDS: METHOCARBAMOL 500 MG TABLET PO PRN ×2 (10:21→17:13)
[2017-04-05] MEDS: NICOTINE 21 MG/24 HOURS TOPICAL PATCH TD SCH (10:21)
[2017-04-05] MEDS: ACETAMINOPHEN 325 MG TABLET (FP) PO PRN (15:52)
[2017-04-05] MEDS: QUEtiapine FUMARATE 100 MG TABLET (FP) PO SCH (21:30)
[2017-04-05] MEDS: THIAMINE HCL 100 MG TABLET (FP) PO SCH (21:32)
[2017-04-06] MEDS: GABAPENTIN 300 MG CAPSULE (FP) PO SCH ×3 (06:21→21:42)
[2017-04-06] MEDS: METHOCARBAMOL 500 MG TABLET PO PRN ×3 (06:22→23:53)
[2017-04-06] MEDS: hydrOXYzine PAMOATE 50 MG CAPSULE (FP) PO PRN ×3 (06:22→21:45)
[2017-04-06] MEDS: PRENATAL VITAMINS W/ FOLIC ACID TABLET (FP) PO SCH (09:59)
[2017-04-06] MEDS: cloNIDine HCL 0.1 MG TABLET PO SCH ×2 (09:59→21:43)
[2017-04-06] MEDS: PANTOPRAZOLE 40 MG TABLET (FP) PO SCH (09:59)
[2017-04-06] MEDS: NAPROXEN 500 MG TABLET (FP) PO SCH ×2 (09:59→21:43)
[2017-04-06] MEDS: NICOTINE 21 MG/24 HOURS TOPICAL PATCH TD SCH (09:59)
[2017-04-06] MEDS: THIAMINE HCL 100 MG TABLET (FP) PO SCH (21:43)
[2017-04-06] MEDS: QUEtiapine FUMARATE 100 MG TABLET (FP) PO SCH (21:43)
[2017-04-07] MEDS: GABAPENTIN 300 MG CAPSULE (FP) PO SCH ×3 (06:33→22:02)
[2017-04-07] MEDS: METHOCARBAMOL 500 MG TABLET PO PRN ×3 (06:33→22:01)
[2017-04-07] MEDS: hydrOXYzine PAMOATE 50 MG CAPSULE (FP) PO PRN ×3 (06:33→22:01)
[2017-04-07] MEDS: cloNIDine HCL 0.1 MG TABLET PO SCH ×2 (10:00→22:02)
[2017-04-07] MEDS: PRENATAL VITAMINS W/ FOLIC ACID TABLET (FP) PO SCH (10:00)
[2017-04-07] MEDS: NAPROXEN 500 MG TABLET (FP) PO SCH ×2 (10:00→22:02)
[2017-04-07] MEDS: PANTOPRAZOLE 40 MG TABLET (FP) PO SCH (10:00)
[2017-04-07] MEDS: NICOTINE 21 MG/24 HOURS TOPICAL PATCH TD SCH (10:01)
[2017-04-07] MEDS: NICOTINE POLACRILEX 4 MG GUM BC PRN ×2 (13:08→22:02)
--- NOTE | 2017-04-07 21:17 | PN ---
[facility] Progress Note Note: PT. CONTINUES TO C/O OF OPIOID WITHDRAWALS. TO START SUBOXONE 2mg BID. PT. REPORTS HE WILL CONTINUE OUTPATIENT TREATMENT AT [facility] UPON DISCHARGE.
[2017-04-07] MEDS: THIAMINE HCL 100 MG TABLET (FP) PO SCH (22:01)
[2017-04-07] MEDS: BUPRENORPHINE/NALOXONE 2 MG/0.5 MG FILM PACKET SL SCH (22:06)
[2017-04-07] MEDS: QUEtiapine FUMARATE 100 MG TABLET (FP) PO SCH (22:07)
[2017-04-08] MEDS: hydrOXYzine PAMOATE 50 MG CAPSULE (FP) PO PRN ×3 (06:40→21:36)
[2017-04-08] MEDS: GABAPENTIN 300 MG CAPSULE (FP) PO SCH ×3 (06:40→21:35)
[2017-04-08] MEDS: METHOCARBAMOL 500 MG TABLET PO PRN ×2 (06:40→21:37)
[2017-04-08] MEDS: PANTOPRAZOLE 40 MG TABLET (FP) PO SCH (09:48)
[2017-04-08] MEDS: NICOTINE 21 MG/24 HOURS TOPICAL PATCH TD SCH (09:48)
[2017-04-08] MEDS: cloNIDine HCL 0.1 MG TABLET PO SCH ×2 (09:48→21:35)
[2017-04-08] MEDS: NAPROXEN 500 MG TABLET (FP) PO SCH ×2 (09:48→21:35)
[2017-04-08] MEDS: PRENATAL VITAMINS W/ FOLIC ACID TABLET (FP) PO SCH (09:48)
[2017-04-08] MEDS: BUPRENORPHINE/NALOXONE 2 MG/0.5 MG FILM PACKET SL SCH ×2 (09:49→21:35)
[2017-04-08] MEDS: NICOTINE POLACRILEX 4 MG GUM BC PRN ×2 (09:54→15:06)
[2017-04-08] MEDS: QUEtiapine FUMARATE 100 MG TABLET (FP) PO SCH (21:35)
[2017-04-08] MEDS: THIAMINE HCL 100 MG TABLET (FP) PO SCH (22:01)
[2017-04-09] MEDS: GABAPENTIN 300 MG CAPSULE (FP) PO SCH ×3 (06:42→21:33)
[2017-04-09] MEDS: hydrOXYzine PAMOATE 50 MG CAPSULE (FP) PO PRN ×3 (06:42→21:33)
[2017-04-09] MEDS: METHOCARBAMOL 500 MG TABLET PO PRN ×3 (06:42→21:35)
[2017-04-09] MEDS: PANTOPRAZOLE 40 MG TABLET (FP) PO SCH (09:56)
[2017-04-09] MEDS: cloNIDine HCL 0.1 MG TABLET PO SCH ×2 (09:56→21:33)
[2017-04-09] MEDS: NICOTINE 21 MG/24 HOURS TOPICAL PATCH TD SCH (09:56)
[2017-04-09] MEDS: NAPROXEN 500 MG TABLET (FP) PO SCH ×2 (09:56→21:33)
[2017-04-09] MEDS: PRENATAL VITAMINS W/ FOLIC ACID TABLET (FP) PO SCH (09:56)
[2017-04-09] MEDS: BUPRENORPHINE/NALOXONE 2 MG/0.5 MG FILM PACKET SL SCH ×2 (09:57→21:33)
[2017-04-09] MEDS: NICOTINE POLACRILEX 4 MG GUM BC PRN ×2 (14:05→21:35)
[2017-04-09] MEDS: THIAMINE HCL 100 MG TABLET (FP) PO SCH (21:32)
[2017-04-09] MEDS: QUEtiapine FUMARATE 100 MG TABLET (FP) PO SCH (21:33)
[2017-04-10] MEDS: GABAPENTIN 300 MG CAPSULE (FP) PO SCH ×3 (06:27→21:25)
[2017-04-10] MEDS: hydrOXYzine PAMOATE 50 MG CAPSULE (FP) PO PRN ×3 (06:27→21:27)
[2017-04-10] MEDS: NICOTINE POLACRILEX 4 MG GUM BC PRN ×2 (06:28→21:28)
[2017-04-10] MEDS: METHOCARBAMOL 500 MG TABLET PO PRN ×3 (06:29→21:27)
[2017-04-10] MEDS: cloNIDine HCL 0.1 MG TABLET PO SCH ×2 (10:17→21:25)
[2017-04-10] MEDS: PANTOPRAZOLE 40 MG TABLET (FP) PO SCH (10:17)
[2017-04-10] MEDS: NAPROXEN 500 MG TABLET (FP) PO SCH ×2 (10:18→21:25)
[2017-04-10] MEDS: NICOTINE 21 MG/24 HOURS TOPICAL PATCH TD SCH (10:18)
[2017-04-10] MEDS: PRENATAL VITAMINS W/ FOLIC ACID TABLET (FP) PO SCH (10:18)
[2017-04-10] MEDS: BUPRENORPHINE/NALOXONE 2 MG/0.5 MG FILM PACKET SL SCH ×2 (10:19→21:27)
[2017-04-10] MEDS: QUEtiapine FUMARATE 100 MG TABLET (FP) PO SCH (21:25)
[2017-04-10] MEDS: THIAMINE HCL 100 MG TABLET (FP) PO SCH (21:25)
[2017-04-11] MEDS: METHOCARBAMOL 500 MG TABLET PO PRN ×2 (06:22→14:24)
[2017-04-11] MEDS: GABAPENTIN 300 MG CAPSULE (FP) PO SCH ×3 (06:22→21:21)
[2017-04-11] MEDS: hydrOXYzine PAMOATE 50 MG CAPSULE (FP) PO PRN ×3 (06:22→21:21)
[2017-04-11] MEDS: PRENATAL VITAMINS W/ FOLIC ACID TABLET (FP) PO SCH (09:54)
[2017-04-11] MEDS: BUPRENORPHINE/NALOXONE 2 MG/0.5 MG FILM PACKET SL SCH ×2 (09:55→21:21)
[2017-04-11] MEDS: NAPROXEN 500 MG TABLET (FP) PO SCH ×2 (09:55→21:21)
[2017-04-11] MEDS: NICOTINE 21 MG/24 HOURS TOPICAL PATCH TD SCH (09:55)
[2017-04-11] MEDS: cloNIDine HCL 0.1 MG TABLET PO SCH ×2 (09:55→21:21)
[2017-04-11] MEDS: PANTOPRAZOLE 40 MG TABLET (FP) PO SCH (09:55)
[2017-04-11] MEDS: NICOTINE POLACRILEX 4 MG GUM BC PRN (14:24)
[2017-04-11] MEDS: MENTHOL/PHENOL 1 EACH UD MM PRN (15:54)
[2017-04-11] MEDS: ACETAMINOPHEN 325 MG TABLET (FP) PO PRN ×2 (16:44→21:21)
[2017-04-11] MEDS: THIAMINE HCL 100 MG TABLET (FP) PO SCH (21:21)
[2017-04-11] MEDS: QUEtiapine FUMARATE 100 MG TABLET (FP) PO SCH (21:21)
[2017-04-12] MEDS: hydrOXYzine PAMOATE 50 MG CAPSULE (FP) PO PRN ×3 (06:30→21:29)
[2017-04-12] MEDS: METHOCARBAMOL 500 MG TABLET PO PRN ×3 (06:30→22:37)
[2017-04-12] MEDS: GABAPENTIN 300 MG CAPSULE (FP) PO SCH ×3 (06:30→21:29)
[2017-04-12] MEDS: ACETAMINOPHEN 325 MG TABLET (FP) PO PRN ×2 (06:46→21:50)
[2017-04-12] MEDS: cloNIDine HCL 0.1 MG TABLET PO SCH ×2 (10:23→21:29)
[2017-04-12] MEDS: PRENATAL VITAMINS W/ FOLIC ACID TABLET (FP) PO SCH (10:23)
[2017-04-12] MEDS: NAPROXEN 500 MG TABLET (FP) PO SCH ×2 (10:23→21:29)
[2017-04-12] MEDS: NICOTINE 21 MG/24 HOURS TOPICAL PATCH TD SCH (10:23)
[2017-04-12] MEDS: PANTOPRAZOLE 40 MG TABLET (FP) PO SCH (10:23)
[2017-04-12] MEDS: BUPRENORPHINE/NALOXONE 2 MG/0.5 MG FILM PACKET SL SCH ×2 (10:24→21:30)
[2017-04-12] MEDS: QUEtiapine FUMARATE 100 MG TABLET (FP) PO SCH (21:29)
[2017-04-12] MEDS: THIAMINE HCL 100 MG TABLET (FP) PO SCH (21:29)
[2017-04-13] MEDS: METHOCARBAMOL 500 MG TABLET PO PRN ×3 (06:18→21:53)
[2017-04-13] MEDS: GABAPENTIN 300 MG CAPSULE (FP) PO SCH ×3 (06:18→21:50)
[2017-04-13] MEDS: hydrOXYzine PAMOATE 50 MG CAPSULE (FP) PO PRN ×3 (06:18→21:50)
[2017-04-13] MEDS: PRENATAL VITAMINS W/ FOLIC ACID TABLET (FP) PO SCH (10:14)
[2017-04-13] MEDS: ACETAMINOPHEN 325 MG TABLET (FP) PO PRN ×2 (10:14→21:52)
[2017-04-13] MEDS: NAPROXEN 500 MG TABLET (FP) PO SCH ×2 (10:14→21:50)
[2017-04-13] MEDS: NICOTINE 21 MG/24 HOURS TOPICAL PATCH TD SCH (10:14)
[2017-04-13] MEDS: PANTOPRAZOLE 40 MG TABLET (FP) PO SCH (10:14)
[2017-04-13] MEDS: cloNIDine HCL 0.1 MG TABLET PO SCH ×2 (10:14→21:50)
[2017-04-13] MEDS: ALBUTEROL SO4 18 GM HFA INHALER IH PRN (10:16)
[2017-04-13] MEDS: BUPRENORPHINE/NALOXONE 2 MG/0.5 MG FILM PACKET SL SCH ×2 (10:17→21:50)
[2017-04-13] MEDS: MENTHOL/PHENOL 1 EACH UD MM PRN (10:17)
[2017-04-13] MEDS: THIAMINE HCL 100 MG TABLET (FP) PO SCH (21:49)
[2017-04-13] MEDS: QUEtiapine FUMARATE 100 MG TABLET (FP) PO SCH (21:50)
[2017-04-13] MEDS: P-EPHED 60MG/TRIPROLIDI 2.5MG TABLET PO PRN (21:53)
[2017-04-14] MEDS: GABAPENTIN 300 MG CAPSULE (FP) PO SCH (06:47)
[2017-04-14] MEDS: METHOCARBAMOL 500 MG TABLET PO PRN (06:47)
[2017-04-14] MEDS: ACETAMINOPHEN 325 MG TABLET (FP) PO PRN (06:47)
[2017-04-14] MEDS: P-EPHED 60MG/TRIPROLIDI 2.5MG TABLET PO PRN (06:48)
[2017-04-14 07:23] VITALS: BP 135/88; PULSE 76; TEMP 97.3
[2017-04-14] MEDS ORDERED: BUPRENORPHINE/NALOXONE 8 MG/2 MG FILM PACKET SL SCH (10:00)
--- NOTE | 2017-04-14 10:02 | PN ---
Psychiatric Progress Note Vital Signs: Vital Signs Period Temp Pulse Resp BP Sys/Harris Pulse Ox Last 24 Hr 97.3 F 74-83 18-18 129-135/88-89 Date of Session: 04/14/17 Chief Complaint:: discharge visit HPI: Patient is addressing opioid, sedative hypnotic, nicotine dependence comorbid MDD, anxiety disorder and insomnia. ROS: Asthma, left leg DVT Current Medications: Active Medications Generic Name Dose Route Start Last Admin Trade Name Freq PRN Reason Stop Dose Admin Acetaminophen 650 mg 03/28/17 16:53 04/14/17 06:47 Tylenol - PO 650 mg Q4H PRN Administration PAIN Al Hydroxide/Mg Hydroxide 30 ml 03/28/17 16:53 03/29/17 23:59 Mylanta Oral Suspension - PO 30 ml Q6H PRN Administration DYSPEPSIA Albuterol Sulfate 2 puff 03/28/17 17:12 04/13/17 10:16 Ventolin Hfa Inhaler - IH 2 puff Q4H PRN Administration WHEEZING Buprenorphine/Naloxone 1 each 04/14/17 10:00 Suboxone 8mg/2mg Sl Film - SL 04/20/17 09:59 DAILY AUSTYN Buspirone HCl 15 mg 03/31/17 14:00 04/14/17 06:47 Buspar - PO 15 mg TID AUSTYN Administration Clonidine 0.1 mg 03/29/17 13:28 04/13/17 21:50 Catapres - PO 0.1 mg BID AUSTYN Administration Eucalyptus/Menthol/Phenol/Sorbitol 1 each 03/28/17 16:53 04/13/17 10:17 Cepastat Lozenge - MM 1 each Q4H PRN Administration SORE THROAT Gabapentin 300 mg 03/31/17 14:00 04/14/17 06:47 Neurontin - PO 300 mg TID AUSTYN Administration Guaifenesin 10 ml 03/28/17 16:53 Robitussin Dm - PO Q6H PRN COUGH Hydroxyzine Pamoate 50 mg 03/28/17 16:53 04/13/17 21:50 Vistaril - PO 50 mg Q4H PRN Administration AGITATION Lidocaine HCl 20 ml 03/28/17 16:57 03/29/17 10:14 Xylocaine 2% Viscous Oral - MM 20 ml TID PRN Administration ORAL PAIN/MOUTH SORES Loperamide HCl 4 mg 03/28/17 16:53 Imodium - PO Q6H PRN DIARRHEA Magnesium Citrate 300 ml 03/28/17 16:53 Citroma - PO Q48H PRN CONSTIPATION Magnesium Hydroxide 30 ml 03/28/17 16:53 Milk Of Magnesia - PO DAILY PRN CONSTIPATION Methocarbamol 500 mg 03/28/17 16:56 04/14/17 06:47 Robaxin - PO 500 mg TID PRN Administration MUSCLE SPASMS Naproxen 500 mg 03/29/17 13:29 04/13/17 21:50 Naprosyn - PO 500 mg BID AUSTYN Administration Nicotine 21 mg 03/28/17 18:15 04/13/17 10:14 Nicoderm Patch - TD 21 mg DAILY AUSTYN Administration Nicotine Polacrilex 4 mg 03/28/17 16:53 04/11/17 14:24 Nicorette Gum - BC 4 mg Q2H PRN Administration NICOTINE REPLACEMENT RX Pantoprazole Sodium 40 mg 03/29/17 13:29 04/13/17 10:14 Protonix - PO 40 mg DAILY AUSTYN Administration Multivit/Folic Acid/Iron 1 tab 03/29/17 10:00 04/13/17 10:14 Vitamins (Sjr) - PO 1 tab DAILY AUSTYN Administration Pseudoephedrine/Triprolidine 1 combo 03/28/17 16:53 04/14/17 06:48 Actifed - PO 1 combo TID PRN Administration NASAL CONGESTION Quetiapine Fumarate 100 mg 04/03/17 23:15 04/13/17 21:50 Seroquel - PO 100 mg HS AUSTYN Administration Thiamine HCl 100 mg 03/28/17 22:00 04/13/17 21:49 Vitamin B1 - PO 100 mg HS AUSTYN Administration Current Side Effect: No Lab tests ordered: No Lab tests reviewed: Yes Provider note:: Patient has completed today his treatment and met his identified goals, will continue to address his issues at [facility] outpatient treatment program. He gained insights intro his problems, he focused on improtance of changing attitude/behavior for the utilization of supports to prevent relapses, patient was encouraged to use alternative ways to cope with the life stressors. Patient continues to find that his current medications effective, scripts provided for 30 days, patient is stable for discharge today. Total face to face time:: 25 Mental Status Exam - Mental Status Exam Alert and Oriented to: Time, Place, Person Cognitive Function: Good Patient Appearance: Well Groomed Mood: Hopeful Affect: Appropriate, Mood Congruent Patient Behavior: Appropriate, Cooperative Speech Pattern: Clear, Appropriate Voice Loudness: Normal Thought Process: Intact, Goal Oriented Thought Disorder: Not Present Hallucinations: Denies Suicidal Ideation: Denies Homicidal Ideation: Denies Insight/Judgement: Fair Sleep: Fair Appetite: Fair Muscle strength/Tone: Normal Gait/Station: Normal Psychiatric Treatment Plan - Problem List (1) Opioid dependence Current Visit: Yes (2) Sedative hypnotic or anxiolytic dependence Current Visit: Yes (3) MDD (major depressive disorder) Current Visit: Yes (4) Anxiety disorder Current Visit: Yes (5) Insomnia Current Visit: Yes Qualifiers: Insomnia type: unspecified Qualified Code(s): G47.00 - Insomnia, unspecified (6) Nicotine dependence Current Visit: Yes Qualifiers: Nicotine product type: cigarettes Substance use status: uncomplicated Qualified Code(s): F17.210 - Nicotine dependence, cigarettes, uncomplicated (7) Use of cane as ambulatory aid Current Visit: Yes
[2017-04-14] MEDS: PRENATAL VITAMINS W/ FOLIC ACID TABLET (FP) PO SCH (10:05)
[2017-04-14] MEDS: cloNIDine HCL 0.1 MG TABLET PO SCH (10:05)
[2017-04-14] MEDS: NICOTINE 21 MG/24 HOURS TOPICAL PATCH TD SCH (10:06)
[2017-04-14] MEDS: PANTOPRAZOLE 40 MG TABLET (FP) PO SCH (10:06)
[2017-04-14] MEDS: NAPROXEN 500 MG TABLET (FP) PO SCH (10:06)
[2017-04-14] MEDS: ALBUTEROL SO4 18 GM HFA INHALER IH PRN (10:08)
[2017-04-14] MEDS: hydrOXYzine PAMOATE 50 MG CAPSULE (FP) PO PRN (10:10)
== END 2017-04-14 10:10 | disposition home or self-care (01) | DRG 895 ==
LOC: YASAS 14:17 → Y5N 17:12
PROVIDERS: ADMIT Psychiatry & Neurology Psychiatry; ATTEND Psychiatry & Neurology Psychiatry
PROC: HZ42ZZZ Group Counseling for Substance Abuse Treatment, Cognitive-Behavioral (ICD-10-PCS; principal; 2017-03-28)
DX: F11.20 Opioid dependence, uncomplicated (principal); F13.20 Sedative, hypnotic or anxiolytic dependence, uncomplicated; F33.9 Major depressive disorder, recurrent, unspecified; F17.210 Nicotine dependence, cigarettes, uncomplicated; F41.9 Anxiety disorder, unspecified; J45.20 Mild intermittent asthma, uncomplicated; G47.00 Insomnia, unspecified; R26.2 Difficulty in walking, not elsewhere classified; Z99.89 Dependence on other enabling machines and devices; Z86.718 Personal history of other venous thrombosis and embolism; Z88.0 Allergy status to penicillin
CPT/HCPCS: 36415; 80053; 81003; 85027; 86593; 93005; 93010